=== PATIENT | female | born 1970 | race Hispanic/Latino ===

== ENCOUNTER 2017-08-23 16:31 | Emergency (ER) | payer MEDICAID ==
[~2017-08-23] VITALS: Ht 162.6 cm; Wt 71.3 kg
[2017-08-23] MEDS ORDERED: ULTRAM50 M1 PO (18:03)
[2017-08-23 18:05] VITALS: BP 136/79
== END 2017-08-23 18:12 | disposition home or self-care (01) | DRG 563 ==
LOC: ED 16:31
DX: S93.402A Sprain of unspecified ligament of left ankle, initial encounter (principal); S93.602A Unspecified sprain of left foot, initial encounter; X50.1XXA Overexertion from prolonged static or awkward postures, initial encounter; Y93.89 Activity, other specified; Y92.512 Supermarket, store or market as the place of occurrence of the external cause